=== PATIENT | female | born 1955 | race Caucasian/White ===

== ENCOUNTER 2016-07-11 20:35 | Emergency (ER) | payer OTHER ==
[2016-07-11 21:41] VITALS: BP 134/72
--- NOTE | 2016-07-11 22:15 | UC ---
Eye Complaint HPI - HPI Summary HPI Summary: The patient comes in today for: 1. Right eye swelling Onset: 7 days ago. Palliative/provocative: nothing makes it better or worse. Quality: itching Region: Lower right eye lid. Severity: 2/10 Time: Constant. Associated symptoms: Previous disease: She has not had anything like this before involving the eye. She has has Zoster of the right cheek about 3 years ago. It is not clear if this is what it is. She was put on Valtrex. No discharge> No problems with vision. The patient has been on Valtrex for 6 days. She was on a lower dose daily, but this was increased by her primary care provider 6 days ago. * - History of Current Complaint Chief Complaint: UCGeneralIllness Stated Complaint: RIGHT EYE Time Seen by Provider: 07/11/16 22:08 Hx Obtained From: Patient Hx Last Menstrual Period: has mirena/perimenopausal ?: No - Allergies/Home Medications Allergies/Adverse Reactions: Allergies Allergy/AdvReac Type Severity Reaction Status Date / Time Codeine Allergy Nausea Verified 07/11/16 21:41 Cyclobenzaprine Allergy tounge Verified 07/11/16 21:41 [From Flexeril] numbness Isothiazolinone Chloride Allergy Swelling Verified 07/11/16 21:41 Of Face,Lips,& Throat Sulfa Drugs Allergy yeast Verified 07/11/16 21:41 infections Home Medications: Home Medications ValACYclovir (*) [Valtrex 1 GM(*)] 1 gm PO TID 07/11/16 [History Confirmed 07/11] PMH/Surg Hx/FS Hx/Imm Hx Previously Healthy: No - Rosacea, acne Endocrine History Of: Denies: Diabetes, Thyroid Disease, Hyperthyroidism, Hypothyroidism, Dyslipidemia Cardiovascular History Of: Denies: Cardiac Disorders, Hypertension, Pacemaker/ICD, Myocardial Infarction , Congestive Heart Failure, Atrial Fibrillation, Deep Vein Thrombosis, Bleeding Disorders Respiratory History Of: Denies: COPD, Asthma, Bronchitis, Pneumonia, Pulmonary Embolism GI/ History Of: Denies: Gastroesophageal Reflux, Ulcer, Gastrointestinal Bleed, Gall Bladder Disease, Kidney Stones, Diverticulitis, Renal Disease, Urosepsis Neurological History Of: Denies: TIA, CVA, Dementia, Seizures, Migraine Psychological History Of: Reports: Anxiety, Depression Denies: Bipolar Disorder, Schizophrenia, Post Traumatic Stress Disorder Cancer History Of: Denies: Lung Cancer, Colorectal Cancer, Breast Cancer, Prostate Cancer, Cervical Cancer Other History Of: Negative For: HIV, Hepatitis B, Hepatitis C, Anticoagulant Therapy - Surgical History Surgical History: Yes Surgery Procedure, Year, and Place: D&C, left knee, T&a - Family History Known Family History: Positive: Cardiac Disease - not at an early age, Hypertension - Social History Occupation: Employed Full-time Alcohol Use: None Substance Use Type: None Smoking Status (MU): Never Smoked Tobacco - Immunization History Most Recent Influenza Vaccination: [id number] Most Recent Tetanus Shot: unknown Review of Systems Constitutional: Negative Skin: Rash ENT: Negative Respiratory: Negative Cardiovascular: Negative Gastrointestinal: Negative Genitourinary: Negative All Other Systems Reviewed And Are Negative: Yes Physical Exam Triage Information Reviewed: Yes Appearance: Well-Appearing, No Pain Distress, Well-Nourished Vital Signs: Initial Vital Signs Temp 97.6 F 07/11/16 21:33 Pulse 70 07/11/16 21:33 Resp 15 07/11/16 21:33 BP 134/72 07/11/16 21:33 Pulse Ox 100 07/11/16 21:33 Vital Signs Reviewed: Yes Eyes: Positive: Conjunctiva Clear, Other: - Right lower eye lid swelling, minimal redness, but point tenderness of the lateral lower lid.. Negative: Discharge ENT: Positive: Hearing grossly normal. Negative: Pharyngeal erythema, Nasal congestion, Nasal drainage, TM bulging, TM dull, TM red, Tonsillar swelling, Tonsillar exudate Dental: Negative: Gross Decay/Caries @, Dental Fracture @ Neck: Positive: Supple, Nontender, No Lymphadenopathy. Negative: Nuchal Rigidity Respiratory: Positive: Chest non-tender, Lungs clear, No respiratory distress, No accessory muscle use. Negative: Crackles, Wheezing Cardiovascular: Positive: RRR, No Murmur Abdomen Description: Positive: Nontender, No Organomegaly, Soft. Negative: Distended, Guarding Musculoskeletal: Positive: Strength Intact, ROM Intact Neurological: Positive: Alert, Muscle Tone Normal Psychological: Positive: Age Appropriate Behavior, Consolable Skin: Negative: rashes, breakdown Eye Complaint Course/Dx - Course Course Of Treatment: Patient informed of the care of stye. - Differential Dx/Diagnosis Provider Diagnoses: Right lower eye lid stye. Discharge - Discharge Plan Condition: Stable Disposition: HOME Patient Education Materials: Stye (ED) Referrals: Coretta Giraldo MD [Primary Care Provider] - 1 Week (Please see your primary care provider in about one week to see how well you are doing. If you get worse, please be seen sooner.)
== END 2016-07-11 22:35 | disposition home or self-care (01) ==
LOC: UCCORT 20:35
DX: H00.012 Hordeolum externum right lower eyelid (principal); Z88.5 Allergy status to narcotic agent; Z88.2 Allergy status to sulfonamides; F41.8 Other specified anxiety disorders
CPT/HCPCS: 99211; G0463

== ENCOUNTER 2017-08-26 21:34 | Emergency (ER) | payer OTHER ==
[2017-08-26] MEDS ORDERED: Tetan/Diph/Pertus SYR(Tdap)* 0.5 ML SYR(BOOSTRIX) use SYR IM ONE (21:47)
--- NOTE | 2017-08-26 21:52 | UC ---
Skin Complaint HPI - HPI Summary HPI Summary: Pt c/o puncture wound to right middle finger. Pt was cleaning out "workshop" and punctured twice by "jimbo nail". Last tetanus was 11 years ago. - History of Current Complaint Time Seen by Provider: 08/26/17 21:41 Stated Complaint: RIGHT HAND MIDDLE FINGER IMJURY Hx Obtained From: Patient Hx Last Menstrual Period: has mirena/perimenopausal ?: No Onset/Duration: Sudden Onset Skin Exposure Onset/Duration: Hours Ago Onset Severity: Mild Location: Discrete - right middle finger Aggravating Factor(s): Touch Associated Signs & Symptoms: Positive: Tenderness - Allergy/Home Medications Allergies/Adverse Reactions: Allergies Allergy/AdvReac Type Severity Reaction Status Date / Time MS Codeine [Codeine] Allergy Nausea Verified 07/11/16 21:41 MS Cyclobenzaprine Allergy tounge Verified 07/11/16 21:41 [From Flexeril] numbness MS Isothiazolinone Chloride Allergy Swelling Verified 07/11/16 21:41 [Isothiazolinone Chloride] Of Face,Lips,& Throat MS Sulfa Drugs [Sulfa Drugs] Allergy yeast Verified 07/11/16 21:41 infections Review of Systems Constitutional: Negative Skin: Other - puncture wound Eyes: Negative ENT: Negative Respiratory: Negative Cardiovascular: Negative Gastrointestinal: Negative Genitourinary: Negative Motor: Negative Neurovascular: Negative Musculoskeletal: Negative Neurological: Negative Psychological: Negative Is Patient Immunocompromised?: No All Other Systems Reviewed And Are Negative: Yes PMH/Surg Hx/FS Hx/Imm Hx Previously Healthy: Yes Other History Of: Negative For: HIV, Hepatitis B, Hepatitis C, Anticoagulant Therapy - Surgical History Surgical History: Yes Surgery Procedure, Year, and Place: D&C, left knee, T&a - Family History Known Family History: Positive: Cardiac Disease - not at an early age, Hypertension - Social History Occupation: Employed Full-time Lives: With Family Alcohol Use: None Substance Use Type: None Smoking Status (MU): Never Smoked Tobacco Have You Smoked in the Last Year: No - Immunization History Most Recent Influenza Vaccination: [id number] Most Recent Tetanus Shot: unknown Physical Exam Triage Information Reviewed: Yes Appearance: Well-Appearing Vital Signs Reviewed: Yes Eye Exam: Normal ENT: Positive: Hearing grossly normal Respiratory: Positive: No respiratory distress Musculoskeletal Exam: Normal Neurological Exam: Normal Psychological Exam: Normal Skin Exam: Other - puncture wound to distal tip or right middle finger, bleeding controlled Course/Dx - Differential Diagnoses - Skin Complaint Differential Diagnoses: Other - puncture wound - Diagnoses Provider Diagnoses: puncture wound to right middle finger Discharge - Sign-Out/Discharge Documenting (check all that apply): Discharge/Admit/Transfer - Discharge Plan Condition: Stable Disposition: HOME Patient Education Materials: Puncture Wound (ED) Referrals: Coretta Giraldo MD [Primary Care Provider] - If Needed - Billing Disposition and Condition Condition: STABLE Disposition: Home
[2017-08-26 21:57] VITALS: BP 126/75
== END 2017-08-26 22:14 | disposition home or self-care (01) ==
LOC: UCCORT 21:34
DX: S61.232A Puncture wound without foreign body of right middle finger without damage to nail, initial encounter (principal); W26.8XXA Contact with other sharp object(s), not elsewhere classified, initial encounter; Y93.9 Activity, unspecified; Y92.9 Unspecified place or not applicable; Z88.5 Allergy status to narcotic agent; Z88.8 Allergy status to other drugs, medicaments and biological substances
CPT/HCPCS: 90471; 90715; 99211; G0463

== ENCOUNTER 2018-03-04 16:51 | Emergency (ER) | payer OTHER ==
--- NOTE | 2018-03-04 17:00 | UC ---
Cardiac HPI - HPI Summary HPI Summary: Patient is a 62 year old female , who present today to the urgent care with left-sided rib pain since morning today. Pain is worse with taking deep breaths. Denies any pain when she is breathing normally. Also reports some midsternal pain with deep breathing. Denies any trauma or mechanism of injury. She denies any shortness of breath. She does report a lot of coughing secondary to allergies. No sick contacts . Denies any fever, chills, No diaphoresis. Denies any abdominal pain , nausea or vomiting , diarrhea or constipation. She does report seeing cardiology for palpitations for which she gets an EKG annually, but she is not taking any medication. She reports that she was doing 16 caffeinated drinks a day, and has decrease it down to one drink per day. Does not feel any palpitations today. - History of Current Complaint Stated Complaint: CHEST DISCOMFORT W/DEEP BREATH Time Seen by Provider: 03/04/18 16:58 Hx Obtained From: Patient Hx Last Menstrual Period: has mirena/perimenopausal - Allergy/Home Medications Allergies/Adverse Reactions: Allergies Allergy/AdvReac Type Severity Reaction Status Date / Time Isothiazolinones Allergy Severe swelling Verified 03/04/18 16:59 face/lips/throat Sulfa (Sulfonamide AdvReac Severe yeast Verified 03/04/18 16:59 Antibiotics) codeine AdvReac Nausea Verified 03/04/18 16:59 cyclobenzaprine AdvReac tongue Verified 03/04/18 16:59 [From Flexeril] numbness PMH/Surg Hx/FS Hx/Imm Hx - Additional Past Medical History Additional PMH: Anxiety Caregiver stress Raynaud's Palpitations Previously Healthy: Yes Other History Of: Negative For: HIV, Hepatitis B, Hepatitis C, Anticoagulant Therapy - Surgical History Surgical History: Yes Surgery Procedure, Year, and Place: D&C, left knee, T&a - Family History Known Family History: Positive: Cardiac Disease - not at an early age, Hypertension - Social History Alcohol Use: None Substance Use Type: None Smoking Status (MU): Never Smoked Tobacco Have You Smoked in the Last Year: No - Immunization History Most Recent Influenza Vaccination: [id number] Most Recent Tetanus Shot: unknown Review of Systems All Other Systems Reviewed And Are Negative: Yes Constitutional: Positive: Negative Skin: Positive: Negative Eyes: Positive: Negative ENT: Positive: Negative Respiratory: Positive: Cough, Other - Left-sided pain with deep breath Cardiovascular: Positive: Other - Left-sided chest discomfort Gastrointestinal: Positive: Negative Genitourinary: Positive: Negative Motor: Positive: Negative Neurovascular: Positive: Negative Musculoskeletal: Positive: Negative Neurological: Positive: Negative Psychological: Positive: Negative Is Patient Immunocompromised?: No Physical Exam - Summary Physical Exam Summary: Physical Exam: Const: Appears well. No signs of apparent distress present. Alert and oriented x 3. Musculo: Walks with a normal gait. Head/Face: Atraumatic, normocephalic on inspection. Eyes: EOMI and PERRLA in both eyes. Conjunctivae clear. No discharge noted ENT: Hearing normal, TM normal appearing bilaterally . Chest: There is no tenderness to palpation at the rib or intercostal area in the area she is reporting pain. There is no tenderness of the costochondral junction at the sternum. Respiratory: Respirations are unlabored. Lungs clear to auscultation bilaterally, no wheezing , rhonchi or rales noted . CVS: Regular rate and Rhythm, S1S2 normal , no murmurs identified. Extremities: Peripheral circulation is grossly normal. Pulses 2+ Abdomen : Soft non tender , nondistended , Bowel sounds present . No guarding , rebound tenderness or rigidity noted. Skin: No lesions or rash located on the upper extremities or on the lower extremities. Neuro: Cranial nerves II to XII intact, motor and sensory intact. DTR Intact bilaterally. Mood is normal. Affect is normal. Triage Information Reviewed: Yes Vital Signs Reviewed: Yes Diagnostics - Radiology No standard instances Radiology Interpretation Completed By: Radiologist - Chest x-ray and left ribs: IMPRESSION: No active cardiopulmonary disease is noted. No pneumothorax. No definite rib fracture is noted. - EKG Cardiac Rate: NL Cardiac Rhythm: Sinus: Normal ST Segment: Normal Summary of EKG Findings: Normal sinus rhythm, normal rate ~ 80, no ST elevation or depression. T-wave inversion noted in V1 which is nonspecific. PAC/sinus arrhythmia - Assessment/Plan Course Of Treatment: During the visit today, we obtained EKG which was within normal limits . Chest / left rib x-ray done today:IMPRESSION: No active cardiopulmonary disease is noted. No pneumothorax. No definite rib fracture is noted. We discussed the findings and further plan to follow up with primary care doctor. It can be due to anxiety and stress. Advised her to call 911 if her chest pain gets worse. Patient expressed understanding . - Clinical Impression Provider Diagnosis: Costochondritis Discharge - Sign-Out/Discharge Documenting (check all that apply): Patient Departure All imaging exams completed and their final reports reviewed: Yes - Discharge Plan Condition: Stable Disposition: HOME Patient Education Materials: Costochondritis (ED) Referrals: Coretta Giraldo MD [Primary Care Provider] - 2 Days Additional Instructions: Follow up with your primary care doctor in 2 days. Patients blood pressure slightly high in Urgent care today , plan follow up with PCP for better control Return to Urgent care / ER if symptoms get worse. - Billing Disposition and Condition Condition: STABLE Disposition: Home
[2018-03-04 17:05] VITALS: BP 146/77
== END 2018-03-04 18:10 | disposition home or self-care (01) ==
LOC: UCCORT 16:51
DX: M94.0 Chondrocostal junction syndrome [Tietze] (principal); Z88.2 Allergy status to sulfonamides; Z88.5 Allergy status to narcotic agent; Z88.3 Allergy status to other anti-infective agents; Z88.8 Allergy status to other drugs, medicaments and biological substances
CPT/HCPCS: 93005; 99211; G0463